=== PATIENT | female | born 1945 | race Caucasian/White ===

== ENCOUNTER → 2020-04-08 13:50 | Outpatient (CLI) | payer MEDICARE, SELFPAY ==
--- NOTE | 2020-04-08 13:54 | MR_ITS ---
PROCEDURE: MR FOOT LT WO CON CLINICAL INDICATION: STRESS FX FX IN FOOT. LATERAL SIDED ANKLE PAIN. PAIN WORSE AROUND LATERAL MALLOELUS. SWELLING IN FOOT AND ANKLE. NO INJURY. NO PRIOR. COMPARISON: No exams were available for comparison TECHNIQUE: Routine multiplanar multi echo sequences are performed without gadolinium enhancement. FINDINGS: There is mild diffuse subcutaneous edema about the ankle medially and laterally and also along the medial aspect of the foot and dorsal aspect of the foot. There is some bone marrow edema within the medial cuneiform and to lesser extent within the mid cuneiform. No obvious fracture or dislocation is evident. 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 There is a small amount of fluid signal intensity along the distal aspect of the extensor hallucis longus. There is fluid present both anterior to the extensor hallucis longus measuring 8 mm and also posterior measuring 13 mm. These may be contiguous. There is a small amount of fluid just anterior to the posterior subtalar joint laterally. The tendons and ligaments of the foot have an unremarkable appearance. A small amount fluid signal is present along the distal and anterior aspect of the Achilles tendon nonspecific. IMPRESSION: 1. Mild diffuse subcutaneous edema of the ankle and to lesser degree of the foot. 2. Bone marrow edema noted of the medial cuneiform and also of the mid cuneiform distally. This is a nonspecific finding and could be inflammatory or infectious or posttraumatic. Please correlate with clinical parameters. 3. Focal fluid along the extensor hallucis longus tendon at the navicular cuneiform junction which may be due to tendinitis. Small amount fluid also present in the anterior subtalar joint laterally nonspecific. Dictated by: Nicola Dennis MD 04/10/2020 12:51 Nicola Dennis MD in [place] 04/10/2020 12:51
== END ==
PROVIDERS: PCP Family Medicine; Visit Provider Podiatrist
DX: M84.375A Stress fracture, left foot, initial encounter for fracture (principal)
CPT/HCPCS: 73718